=== PATIENT | female | born 1985 | race Caucasian/White ===

== ENCOUNTER 2017-09-27 18:06 | Emergency (ER) | payer BC, SELFPAY ==
[2017-09-27 20:29] VITALS: BP 138/76; PULSE 94; RESP 20; TEMP 36.8; O2SAT 97; BMI 30.1
[2017-09-27 20:33] LABS: UTC Strep Screen (Rapid) Negative (Negative)
[2017-09-27 20:36] LABS: UTC Influenza A Antigen Negative (Negative); UTC Influenza B Antigen Negative (Negative)
--- NOTE | 2017-09-27 21:04 | HMH.EDUTC ---
[facility] [place] Disposition Clinical Impression: Tonsillolith Disposition: Home, Self-Care Condition on Discharge: Good Additional Instructions: * * Per hospital policy, Your throat swab was sent for culture. Those results are typically sent to your primary care. Be sure to follow up in 2-3 days if no improvement so they can review those results and treat if necessary. If you don't have primary care, I recommend you get one but in the mean time, you will have to return to a walk in clinic. While tonsil stones may seem like a bad medical hoax, they can be a real problem. Tonsil stones, also known as tonsilloliths or tonsilliths, are benign accumulations of bacteria and debris in the crypts of some people's tonsils. Though this problem may cause discomfort, it is not dangerous and is usually easily treatable. Causes The tonsils are part of a protection system that keeps foreign objects from slipping into the lungs. They are also lymph nodes that filter for bacteria and viruses while producing white blood cells and antibodies, according to the [facility]. Objects such as food, dirt and other particles can get stuck in the groves on the surface of the tonsils. The grooves, called crypts, also collect old cells and bacteria. The body's white blood cells proceed to attack the foreign objects stuck in the tonsils. When the white blood cells are finished, hard particles remain on the tonsils. Most people simply swallow what is left behind and never know that it was there in the first place. If the particles are lodged into the crypts, though, the particles will continue to grow. These growing objects are tonsil stones, which are also called tonsil calculi. According to a study in 2009 by the [employer] at the [facility] in the Otolaryngology journal, tonsil stones are more alive than actual stones. They are actually a living biofilm that breathes oxygen. According to Dr. Hector Jiménez, a alarm investigator and author, tonsil stones are most common in teens and those with large tonsils. Those with poor dental hygiene may also experience tonsil stones. Symptoms Some people have no symptoms when afflicted with tonsil stones. Those who do have symptoms often report redness or irritation of the tonsils. There are several other symptoms that can be related to tonsil stones, with bad breath being one of the most obvious. According to the [facility], bacteria grow on the stones, which produces a foul odor. People with throat stones can also feel like they have something stuck in their throats, according to Dr. Tomi Ashley, an mailroom associate of otolaryngology at [facility]. Other symptoms can include chronic, mild sore throat and reoccurring tonsillitis. Tonsil stones can often be seen in the mirror. The tonsils won't seem smooth. Instead, they look like prunes, with crevices where bacteria can accumulate, said Hong Almazan, a dentist in [place]. Typically, tonsil stones can be seen as white, yellow or haley nodes on the tonsils. This isn't always the case, though. Many tonsil stones aren't visible because they are burrowed down inside of the tonsil, said Dr. Radha Le, an feed elevator worker at [facility] in [place], [place]. Tonsil stones can grow to 1 to 2 millimeters across. But they can be up to 1 centimeters across, according to the [facility]. Treatment One of most common treatments to cure tonsil stones is simply scraping them off with a toothbrush. If that doesn't work, there are several other at-home options. Gargling with salt water can help dislodge them. Using a cotton swab to express them from the little small cavities that are visible is another option, said Mimi. A water flossing device such as a Waterpik can also be used to power wash the debris out of the tonsils. Sometimes the tonsil stones are so deeply embedded that they cannot be removed at home. In this case, an
--- NOTE | 2017-09-27 21:12 | ED_ITS ---
[facility] [place] Clinical Impression: Tonsillolith Disposition: Home, Self-Care Condition on Discharge: Good Additional Instructions: * * Per hospital policy, Your throat swab was sent for culture. Those results are typically sent to your primary care. Be sure to follow up in 2-3 days if no improvement so they can review those results and treat if necessary. If you don' t have primary care, I recommend you get one but in the mean time, you will have to return to a walk in clinic. While tonsil stones may seem like a bad medical hoax, they can be a real problem. Tonsil stones, also known as tonsilloliths or tonsilliths, are benign accumulations of bacteria and debris in the crypts of some people's tonsils. Though this problem may cause discomfort, it is not dangerous and is usually easily treatable. Causes The tonsils are part of a protection system that keeps foreign objects from slipping into the lungs. They are also lymph nodes that filter for bacteria and viruses while producing white blood cells and antibodies, according to the [facility]. Objects such as food, dirt and other particles can get stuck in the groves on the surface of the tonsils. The grooves, called crypts, also collect old cells and bacteria. The body's white blood cells proceed to attack the foreign objects stuck in the tonsils. When the white blood cells are finished, hard particles remain on the tonsils. Most people simply swallow what is left behind and never know that it was there in the first place. If the particles are lodged into the crypts, though, the particles will continue to grow. These growing objects are tonsil stones, which are also called tonsil calculi. According to a study in 2009 by the [facility] [employer] at the [facility] in the Otolaryngology journal, tonsil stones are more alive than actual stones. They are actually a living biofilm that breathes oxygen. According to Dr. Hector Jiménez, a digital camera technician and author, tonsil stones are most common in teens and those with large tonsils. Those with poor dental hygiene may also experience tonsil stones. Symptoms Some people have no symptoms when afflicted with tonsil stones. Those who do have symptoms often report redness or irritation of the tonsils. There are several other symptoms that can be related to tonsil stones, with bad breath being one of the most obvious. According to the [facility], bacteria grow on the stones, which produces a foul odor. People with throat stones can also feel like they have something stuck in their throats, according to Dr. Tomi Ashley, an associate professor of english of otolaryngology at [facility]. Other symptoms can include chronic , mild sore throat and reoccurring tonsillitis. Tonsil stones can often be seen in the mirror. The tonsils won't seem smooth. Instead, they look like prunes, with crevices where bacteria can accumulate, said Hong Almazan, a dentist in [place]. Typically, tonsil stones can be seen as white, yellow or haley nodes on the tonsils. This isn't always the case, though. Many tonsil stones aren't visible because they are burrowed down inside of the tonsil, said Dr. Radha Le, an inbound sales manager at [facility] in [place], [place]. Tonsil stones can grow to 1 to 2 millimeters across. But they can be up to 1 centimeters across, according to the [facility]. Treatment One of most common treatments to cure tonsil stones is simply scraping them off with a toothbrush. If that doesn't work, there are several other at-home options. Gargling with salt water can help dislodge them. Using a cotton swab to express them from the little small cavities that are visible is another
[2017-09-27 21:19] VITALS: BP 138/76; PULSE 94; RESP 20; TEMP 36.8; O2SAT 97
== END 2017-09-27 21:21 | disposition home or self-care (01) ==
PROVIDERS: Emergency Provider Nurse Practitioner Family; Family Provider Family Medicine; PCP Family Medicine
DX: J03.90 Acute tonsillitis, unspecified (principal); J45.909 Unspecified asthma, uncomplicated
CPT/HCPCS: 87804; 87880; 99202

== ENCOUNTER → 2020-06-06 09:45 | Outpatient (CLI) | payer BC, SELFPAY ==
[2020-06-07 15:28] LABS: Covid-19 Nasal PCR Sendout Lex Not Detected
== END ==
PROVIDERS: PCP Family Medicine; Visit Provider Nurse Practitioner
DX: Z03.818 Encounter for observation for suspected exposure to other biological agents ruled out (principal)
CPT/HCPCS: U0004

== ENCOUNTER → 2020-08-13 11:56 | Outpatient (CLI) | payer BC, SELFPAY ==
[2020-08-14 14:53] LABS: Covid-19 Nasal PCR Sendout Lex Not Detected
== END ==
PROVIDERS: PCP Nurse Practitioner Family; Visit Provider Nurse Practitioner Family
DX: Z03.818 Encounter for observation for suspected exposure to other biological agents ruled out (principal)
CPT/HCPCS: U0004

== ENCOUNTER 2022-07-14 16:45 | Emergency (ER) | payer BC, SELFPAY ==
[2022-07-14 16:52] VITALS: BP 134/90; PULSE 120; RESP 18; TEMP 37.1; O2SAT 96; BMI 30.1
[2022-07-14 17:10] VITALS: BP 134/90; PULSE 120; RESP 18; TEMP 37.1; O2SAT 96; BMI 30.1
--- NOTE | 2022-07-14 17:20 | EXP.UTC ---
Discharge Plan Disposition Patient Disposition: Home, Self-Care Condition: Good Prescriptions Prescriptions: New benzonatate [benzonatate] 100 mg capsule 100 mg PO TIDP PRN (Reason: Cough) Qty: 30 0RF ondansetron 4 mg Tablet,Disintegrating 4 mg PO Q8H PRN (Reason: Nausea) Qty: 20 0RF azithromycin [Zithromax] 250 mg tablet 250 mg PO UD DOSE PK Qty: 6 0RF Rx Instructions: Take two (2) tablets today, then one (1) tablet days #2 thru #5 methylprednisolone 4 mg Tablets,Dose Pack 4 mg PO DIRECTED Qty: 21 0RF Referrals Follow up/Referrals: Megan Marie APRN [Primary Care Provider] - See instructions Activity Restrictions/Add. Instructions Additional Instructions/Restrictions: Drink plenty of fluids. Take tylenol or ibuprofen for pain or fever. Take the medications as directed. Follow up with your regular doctor. GO TO THE ER FOR ANY WORSENING SYMPTOMS Don't start the oral steroids until tomorrow, since you had the shot here today. Clinical Impressions Clinical Impression: Pharyngitis, Viral syndrome, Asthma exacerbation Stand Alone Forms Stand Alone Forms: Work/School Release Instructions Patient Instructions: DI for Viral Syndrome Discharge ED Provider: Evan Martinez [facility] General Stated complaint: soa, cough, body aches Mode of Arrival: Ambulatory Limitations: No Limitations Time Seen by Provider: 07/14/22 17:20 Description of Symptoms (Recalled from Triage Doc. by RN): PT REPORTS COUGH, WHEEZING AND BODYACHES SINCE LAST NIGHT. HAS BEEN EXPOSED TO FLU. HAS RECENTLY USED INHALER History of Present Illness Provider Complaint: She states that she has had worsening chest congestion and a productive cough since last night. Related Data Previous Rx's Medication Instructions Recorded azithromycin 250 mg tablet 250 mg PO UD DOSE PK #6 tabs 07/14/22 (Zithromax) benzonatate 100 mg capsule 100 mg PO TIDP PRN Cough #30 caps 07/14/22 methylprednisolone 4 mg tablets in 4 mg PO DIRECTED #21 tabs 07/14/22 a dose pack ondansetron 4 mg disintegrating 4 mg PO Q8H PRN Nausea #20 tabs 07/14/22 tablet Allergies Allergy/AdvReac Type Severity Reaction Status Date / Time No Known Allergies Allergy Verified 07/14/22 17:26 [facility] Medical History Asthma Surgical History [place] teeth removed Social History Smoking Status: Never smoker alcohol intake: never current occupational status: other Travel in the last 8 weeks: None ROS Obtained: Yes All systems reviewed & no additional complaints except as documented Constitutional Constitutional: Reports chills and Reports fever(s) Eyes Eyes: Denies eye discharge ENT Ears, Nose, Mouth, and Throat: Reports as per HPI Cardiovascular Cardiovascular: Denies chest pain and Denies dyspnea Respiratory Respiratory: Reports chest congestion, Reports cough, Denies dyspnea, Denies stridor and Reports wheezing Gastrointestinal Gastrointestingal: Reports nausea; Denies abdominal pain, constipation, cramping, diarrhea or vomiting Musculoskeletal Musculoskeletal: Denies arthralgias Integumentary/Breasts Skin/Breast: Denies rash Neurologic Neurologic: Denies paresthesias Allergic/Immunologic Allergic/Immunologic: Reports wheezing Physical Exam General General appearance: alert and in no apparent distress Head Head exam: atraumatic, normocephalic and normal inspection Eye Eye exam: Present normal appearance, PERRL and EOMI ENT ENT exam: Present normal exam, normal oropharynx, mucous membranes moist, TM's normal bilaterally and normal external ear exam Neck Neck exam: Present normal inspection, full ROM and trachea midline; Absent meningismus or lymphadenopathy Chest Chest inspection: Present normal inspection and symmetric chest wall rise; Absen
[2022-07-14 17:47] LABS: UTC Influenza A Antigen Negative (Negative); UTC Influenza B Antigen Negative (Negative)
[2022-07-14 17:50] LABS: UTC Strep Screen (Rapid) Negative (Negative)
[2022-07-14 18:03] VITALS: BP 134/90; PULSE 120; RESP 18; TEMP 37.1; O2SAT 96
[2022-07-14 18:16] LABS: Adenovirus,PCR Not Detected (NotDetected); Bordetella Pertussis Not Detected (NotDetected); Chlamydophila Pneumoniae, PCR Not Detected (NotDetected); Coronavirus 19, PCR Not Detected (NotDetected); Coronavirus 229E Not Detected (NotDetected); Coronavirus NL63 Not Detected (NotDetected); Coronavirus OC43 Not Detected (NotDetected); Coronovirus HKU1,PCR Not Detected (NotDetected); Human Metapneumovirus Not Detected (NotDetected); Influenza A, PCR Not Detected (NotDetected); Influenza AH1, PCR Not Detected (NotDetected); Influenza AH3,PCR Not Detected (NotDetected); Influenza B, PCR Not Detected (NotDetected); Mycoplasma Pneumoniae, PCR Not Detected (NotDetected); Parainfluenza 1, PCR Not Detected (NotDetected); Parainfluenza 2, PCR Not Detected (NotDetected); Parainfluenza 3, PCR Not Detected (NotDetected); Parainfluenza 4, PCR Not Detected (NotDetected); Respiratory Syncytial Virus Not Detected (NotDetected); Rhinovirus/Enterovirus Not Detected (NotDetected)
[2022-07-15 09:06] LABS: Influenza AH1, 2009 Detected (NotDetected)
== END 2022-07-14 18:13 | disposition home or self-care (01) ==
LOC: ER 16:53 → UTC 16:54
PROVIDERS: Emergency Provider Nurse Practitioner Family; PCP Nurse Practitioner Family
DX: J10.1 Influenza due to other identified influenza virus with other respiratory manifestations (principal); J45.901 Unspecified asthma with (acute) exacerbation; R06.02 Shortness of breath; R50.9 Fever, unspecified; R05.9 Cough, unspecified; R11.0 Nausea; Z20.822 Contact with and (suspected) exposure to COVID-19; M79.10 Myalgia, unspecified site; Z79.899 Other long term (current) drug therapy
CPT/HCPCS: 87581; 87632; 87798; 87804; 87880; 96372; 99213; C9803; G0463; U0003; U0005

== ENCOUNTER → 2022-09-25 08:21 | Outpatient (CLI) | payer BC, SELFPAY ==
--- NOTE | 2022-09-25 08:27 | US_ITS ---
FINAL REPORT CLINICAL HISTORY: RUQ PAIN FINDINGS: Sonographic images of the right upper quadrant were obtained. The pancreas is partially obscured.The liver has an unremarkable appearance.The gallbladder appears normal without evidence of gallstones.There is no evidence of biliary ductal dilatation.The common duct measures 3 mm. Limited images of the right kidney are unremarkable. IMPRESSION: Unremarkable right upper quadrant ultrasound. Reviewed, Interpreted and Dictated by Isai Cai III, MD Transcribed by Ping Garcia Authenticated and [facility]
== END ==
PROVIDERS: PCP Nurse Practitioner Family; Visit Provider Nurse Practitioner Family
DX: R10.11 Right upper quadrant pain (principal)
CPT/HCPCS: 76705

== ENCOUNTER 2025-01-18 09:38 | Emergency (ER) | payer BC, SELFPAY ==
[2025-01-18] VITALS (7 sets, daily range): BP systolic 116–150; BP diastolic 71–99; PULSE 80–98; RESP 15; TEMP 36.7–36.9; O2SAT 98–99; BMI 30.9
[2025-01-18] MEDS: ACETAMINOPHEN 1,000MG/100ML VIAL 1000 MG IV (10:32)
[2025-01-18] MEDS: diphenhydrAMINE 50MG/ML VIAL 25 MG IV (10:33)
[2025-01-18] MEDS: DEXAMETHASONE 4MG/ML 1ML VIAL 10 MG IV (10:34)
[2025-01-18] MEDS: METOCLOPRAMIDE HCL 10MG/2ML VIAL 5 MG IVP (10:34)
[2025-01-18] MEDS: LACTATED RINGERS 1000ML 1,000 ML 999 ML IV (10:35)
--- NOTE | 2025-01-18 10:50 | HMH.EDGENADL ---
Discharge Plan Disposition Patient Disposition: Home, Self-Care Condition: Good Prescriptions Prescriptions: New ondansetron 4 mg tablet,disintegrating 4 mg PO Q8H PRN (Reason: nausea and vomiting) 4 Days Qty: 12 0RF No Action benzonatate [benzonatate] 100 mg capsule 100 mg PO TIDP PRN (Reason: Cough) Qty: 30 0RF ondansetron 4 mg Tablet,Disintegrating 4 mg PO Q8H PRN (Reason: Nausea) Qty: 20 0RF azithromycin [Zithromax] 250 mg tablet 250 mg PO UD DOSE PK Qty: 6 0RF Rx Instructions: Take two (2) tablets today, then one (1) tablet days #2 thru #5 methylprednisolone 4 mg Tablets,Dose Pack 4 mg PO DIRECTED Qty: 21 0RF Referrals Follow up/Referrals: Deepti Awan APRN [Primary Care Provider] - See instructions Activity Restrictions/Add. Instructions Additional Instructions/Restrictions: You were evaluated in the emergency department today. Please follow-up very closely with your primary care provider. Return to the emergency department for new or worsening symptoms Clinical Impressions Clinical Impression: Migraine Stand Alone Forms Stand Alone Forms: Work/School Release Instructions Patient Instructions: DI for Migraine Print Language Print Language: Thai Discharge ED Provider: Quin Gallagher General Adult HPI General Chief complaint: Headache Stated complaint: migraine and nausea Time Seen by Provider: 01/18/25 09:44 Mode of Arrival: Ambulatory Source of Information: Patient Description of Symptoms (Recalled from ER Triage Doc. by RN): patient states since 5am she has had a migraine, reports pain in back of her head and front of head. she is also nauseated History of Present Illness HPI narrative: This patient is a 39-year-old female who denies significant past medical history presenting to the emergency department for evaluation of concern for migraine headache. She states that she woke up with a headache earlier this morning and is accompanied by nausea and vomiting. She states that she has had headaches in the past but the new concerning feature with this 1 is nausea. No visual changes, numbness, tingling, unilateral weakness. No fevers, cough, congestion, or other concerns. She states that it feels like a dull ache/pressure radiating from the back of her head to the forehead. Related Data Previous Rx's ?Medication ?Instructions ?Recorded azithromycin 250 mg tablet 250 mg PO UD DOSE PK #6 tabs 07/14/22 (Zithromax) benzonatate 100 mg capsule 100 mg PO TIDP PRN Cough #30 caps 07/14/22 methylprednisolone 4 mg tablets in 4 mg PO DIRECTED #21 tabs 07/14/22 a dose pack ondansetron 4 mg disintegrating 4 mg PO Q8H PRN Nausea #20 tabs 07/14/22 tablet ondansetron 4 mg disintegrating 4 mg PO Q8H PRN nausea and 01/18/25 tablet vomiting 4 days #12 tabs Allergies Allergy/AdvReac Type Severity Reaction Status Date / Time No Known Allergies Allergy Verified 07/14/22 17:26 [facility] Disclaimer: The information contained in this section may have been updated after the patient was seen, as this information can be updated by other users. Medical History Asthma Surgical History [place] teeth removed Social History Smoking Status: Never smoker alcohol intake: never current occupational status: other Travel in the last 8 weeks?: None Have you lived/traveled outside US in past 30 days?: No Contact w/someone who lives/traveled outside US past 30 days?: No Exposure to someone with infectious disease in past 14 days?: No Do you have a fever (greater than 100.4 F or 38 C)?: No Have you tested positive for COVID-19?: No Exposed to someone with COVID-19 in past 14 days?: No Do you have a sore throat?: No Do you have a cough?: No Do you have any weakness?: No Do you have any diarrhea?: No Are you experiencing any unusual bleeding?: No Do you have any muscle aches/pain?: No Do you have any abdominal pain?: No Are you experiencing loss of taste or smell?: No ROS Obtained: Yes All systems reviewed & no additional complaints except as documented Physical Exam General General appearance: alert and in no apparent distress Head Head exam: atraumatic and normocephalic Eye Eye exam: Present normal appearance, PERRL and EOMI ENT ENT exam: Present normal exam, normal oropharynx, mucous membranes moist and normal external ear exam Neck Neck exam: Present normal inspection, full ROM and trachea midline; Absent tenderness Chest Chest inspection: Present normal inspection and symmetric chest wall rise; Absent tenderness Respiratory Respiratory exam: Present normal lung sounds bilaterally; Absent respiratory distress, wheezes, stridor or accessory muscle use Cardiovascular Cardiovascular exam: Present regular rate and normal rhythm Abdominal Exam Abdominal exam: Present soft; Absent distention, tenderness or guarding Extremities Exam Extremities exam: Present normal inspection, full ROM and normal capillary refill; Absent tenderness or edema Back Exam Back exam: Present normal inspection and full ROM; Absent tenderness Neurological Exam Neurological exam: Present alert, oriented X3, CN II-XII intact and normal gait; Absent motor sensory deficit Psychiatric Psychiatric exam: Present normal affect and normal mood Skin Skin exam: Present warm and dry Medical Decision Making Medical Records Medical records reviewed: Yes I reviewed the patient's medical records. Screening: Per USPSTF and CDC recommendations, given the prevalence of disease in our region, it is our hospital?s policy to screen for HIV and viral Hepatitis for all patients aged 18 and over and those with ongoing risk factors. Mu Inquiry Pt receiving controlled substance: No Vital Signs: 01/18/25 09:56 01/18/25 10:00 01/18/25 10:24 Temperature 98.1 F Temperature Source Oral Pulse Rate 86 93 H Pulse Rate [Right Radial] 98 H Respiratory Rate 15 Blood Pressure 147/88 H 150/99 H Blood Pressure [Right Arm] 138/72 Blood Pressure Mean Blood Pressure Mean [Right Arm] 94 Blood Pressure Source Blood Pressure Source [Right Arm] Automatic Cuff Blood Pressure Position [Right Arm] Supine 02 Sat by Pulse Oximetry 98 98 98 Oxygen Delivery Method Room Air Room Air Room Air 01/18/25 11:00 01/18/25 11:30 01/18/25 12:00 Temperature Temperature Source Pulse Rate 92 H 86 84 Pulse Rate [Right Radial] Respiratory Rate Blood Pressure 124/82 116/71 117/83 Blood Pressure [Right Arm] Blood Pressure Mean 90 Blood Pressure Mean [Right Arm] Blood Pressure Source Blood Pressure Source [Right Arm] Blood Pressure Position [Right Arm] 02 Sat by Pulse Oximetry 98 99 98 Oxygen Delivery Method Room Air Room Air 01/18/25 12:16 Temperature 98.4 F Temperature Source Oral Pulse Rate 80 Pulse Rate [Right Radial] Respiratory Rate 15 Blood Pressure 117/83 Blood Pressure [Right Arm] Blood Pressure Mean Blood Pressure Mean [Right Arm] Blood Pressure Source Automatic Cuff Blood Pressure Source [Right Arm] Blood Pressure Position [Right Arm] 02 Sat by Pulse Oximetry Oxygen Delivery Method Room Air Lab Data Lab results reviewed: Yes I reviewed the patient's lab results. Lab Results 01/18/25 10:29: HCV Ab TAMY w/Rflx PCR Qn Negative, HIV Ag/Ab Combo Qual Negative 01/18/25 11:18: Urine Color Yellow, Urine Appearance Clear, Urine pH 8.5, Ur Specific [place]ney 1.015, Urine Protein Negative, Urine Glucose (UA) Negative, Urine Ketones Negative, Urine Blood Negative, Urine Nitrate Negative, Urine Bilirubin Negative, Urine Urobilinogen 0.2, Ur Leukocyte Esterase Negative, Urine RBC None, Urine WBC 3-5, Ur Squamous Epith Cells 5-10, Urine Bacteria Trace, Urine HCG, Qual Negative Orders (Tests/Meds): ED MEDICATIONS Discontinued Medications Generic Name Dose Route Start Last Admin Trade Name Freq PRN Reason Stop Dose Admin Acetaminophen 1,000 mg 01/18/25 10:12 01/18/25 10:32 Acetaminophen 1,000mg/100ml Vial IV 01/18/25 10:13 1,000 mg ONCE ONE Administration Dexamethasone Sodium Phosphate 10 mg 01/18/25 10:12 01/18/25 10:34 Dexamethasone 4mg/Ml 1ml Vial IV 01/18/25 10:13 10 mg ONCE ONE Administration Diphenhydramine HCl 25 mg 01/18/25 10:12 01/18/25 10:33 Diphenhydramine 50mg/Ml Vial IV 01/18/25 10:13 25 mg ONCE ONE Administration Lactated Ringer's 1,000 mls @ 999 mls/hr 01/18/25 10:12 01/18/25 10:35 Lactated Ringer's 1000 Ml Bag IV 01/18/25 11:12 999 mls/hr .Q1H1M ONE Administration Ketorolac Tromethamine 15 mg 01/18/25 11:38 01/18/25 11:41 Ketorolac 30mg/Ml Vial IV 01/18/25 11:39 15 mg ONCE ONE Administration Metoclopramide HCl 5 mg 01/18/25 10:12 01/18/25 10:34 Metoclopramide Hcl 10mg/2ml Vial IVP 01/18/25 10:13 5 mg ONCE ONE Administration ORDERS Category Date Time Status HIV Combo Stat Lab 01/18/25 10:29 Completed Hepatitis C Ab Qual. W/ RFX Stat Lab 01/18/25 10:29 Completed UA [Urinalysis and Microscopic] Stat Lab 01/18/25 11:18 Completed Urine , HCG Qual. Stat Lab 01/18/25 11:18 Completed Medical Decision Narrative: In summary, this patient is a 39-year-old female presenting to the Emergency Department for evaluation of headache, nausea, and vomiting. Differential diagnoses considered include but are not limited to syndrome, migraine headache, tension headache, intracranial bleed, intracranial mass, tension headache. Ruling out the most morbid conditions drove assessment. On exam, the patient is sitting upright in no acute distress and is neurologically intact with no meningismus or other concerning findings. Vitals are reassuring on cardiac telemetry. I considered obtaining CT head without contrast, however based on reassuring history and neurological exam I do not feel this is indicated as it would likely not tire changer. Patient agreeable to try a migraine cocktail with IV Toradol, acetaminophen, Reglan, Benadryl, dexamethasone and assess for symptomatic improvement. If she does not have improvement, will reconsider head imaging. On reassessment, the patient is feeling much better and remains neurologically intact. Exam is very reassuring. Given this, I feel that she is appropriate for discharge home with prescription for Zofran and instructions for supportive management and close follow-up for further evaluation of migraine. Strict return precautions given Critical Care Critical Care Time Critical Care Time: No
[2025-01-18 11:25] LABS: Microscopic, Urine URINE MICROSCOPIC (MICROSCOPIC)
[2025-01-18 11:34] LABS: Urine Pregnancy, HCG Qual. Negative (Negative)
[2025-01-18] MEDS: KETOROLAC 30MG/ML VIAL 15 MG IV (11:41)
[2025-01-18 11:51] LABS: Appearance,Urine CLEAR (Clear); Bilirubin,Urine Negative (Negative); Blood, Urine Negative (Negative); Color,Urine YELLOW (Yellow); Glucose,Urine (UA) Negative (Negative); Ketones,Urine Negative (Negative); Leukocyte Esterase,Urine Negative (Negative); Nitrate,Urine Negative (Negative); PH,Urine 8.5 (5.0-8.5); Protein,Urine Negative (Negative); Specific Gravity, Urine 1.015 (1.005-1.030); Urobilinogen,Urine 0.2 EU/dl (0.2)
[2025-01-18 11:53] LABS: Bacteria,Urine Trace /lpf
[2025-01-18 11:54] LABS: HIV Combo NEGATIVE (Negative)
[2025-01-18 12:02] LABS: Hepatitis C Ab Qual. W/ RFX NEGATIVE (Negative)
== END 2025-01-18 12:22 | disposition home or self-care (01) ==
PROVIDERS: Emergency Provider Emergency Medicine; PCP Nurse Practitioner Family
DX: G43.909 Migraine, unspecified, not intractable, without status migrainosus (principal); R11.0 Nausea; Z11.59 Encounter for screening for other viral diseases; Z11.4 Encounter for screening for human immunodeficiency virus [HIV]
CPT/HCPCS: 81001; 81025; 86803; 87389; 96361; 96374; 96375; 99284; J0131; J1100; J1200; J1885; J2765; J7120